=== PATIENT | female | born 1995 | race African-American/Black ===

== ENCOUNTER 2025-10-03 11:44 | Emergency (ER) | payer SELFPAY ==
[2025-10-03 12:56] LABS: Glucose, Urine (Dipstick) Normal (Negative); Leukocyte 100 (Negative); Protein, Urine (Dipstick) Negative (Neg-Trace); Specific Gravity, Urine 1.010 (1.005-1.030)
[2025-10-03 13:08] LABS: CAUTI Indications for Culture Dysuria,urgency,freq; RBC/HPF None Seen HPF (0-3); WBC/HPF 0-3 HPF (0-3)
[2025-10-03 13:09] LABS: Bacteria/HPF Rare-Few HPF (None Seen)
[2025-10-03 13:10] LABS: Urine Culture Reflex No No
[2025-10-04 01:05] LABS: Chlamydia by PCR, Vaginal Swab Not Detected (NotDetected); GC by PCR, Vaginal Swab Not Detected (NotDetected)
== END 2025-10-03 13:45 | disposition home or self-care (01) ==
LOC: CSHERS 11:44
DX: N76.0 Acute vaginitis (principal); B96.89 Other specified bacterial agents as the cause of diseases classified elsewhere
CPT/HCPCS: 81001; 87480; 87491; 87510; 87591; 87660; 99283